=== PATIENT | male | born 1975 | race Caucasian/White ===

== ENCOUNTER 2016-08-14 09:46 | Emergency (ER) | payer OTHER ==
[~2016-08-14] VITALS: Ht 167.6 cm; Wt 131.8 kg
[2016-08-14] MEDS ORDERED: CAPT25TA3 PO (09:57)
[2016-08-14 13:13] VITALS: BP 129/85
== END 2016-08-14 13:12 | disposition home or self-care (01) ==
LOC: EMS 09:49
DX: S83.92XA Sprain of unspecified site of left knee, initial encounter (principal); I10 Essential (primary) hypertension; X58.XXXA Exposure to other specified factors, initial encounter; Y93.89 Activity, other specified; Y92.9 Unspecified place or not applicable; Y99.9 Unspecified external cause status
CPT/HCPCS: 29505; 99284

== ENCOUNTER 2016-12-18 09:38 | Emergency (ER) | payer OTHER ==
[~2016-12-18] VITALS: Ht 177.8 cm; Wt 136.3 kg
[~2016-12-18 09:38] MED LIST: CAPT25TA3 PO
[2016-12-18 11:43] VITALS: BP 140/88
[2016-12-18] MEDS ORDERED: IBUPROFEN 600 MG TABLET PO ONE (11:45)
[2016-12-18] MEDS ORDERED: IBUPROFEN 800 MG TABLET PO ONE (11:45)
== END 2016-12-18 11:48 | disposition home or self-care (01) ==
LOC: EMS 09:43
DX: S86.912A Strain of unspecified muscle(s) and tendon(s) at lower leg level, left leg, initial encounter (principal); I10 Essential (primary) hypertension; X58.XXXA Exposure to other specified factors, initial encounter; Y93.89 Activity, other specified; Y92.89 Other specified places as the place of occurrence of the external cause; Y99.9 Unspecified external cause status
CPT/HCPCS: 99284

== ENCOUNTER 2023-09-15 12:43 | Emergency (ER) | payer OTHER ==
[~2023-09-15] VITALS: Ht 172.7 cm; Wt 186.4 kg
[2023-09-15 13:01] VITALS: TEMP 98.3
[2023-09-15] MEDS: HYDROCODONE/ACETAMINOPHEN 5-325 MG TABLET PO ONE (15:54)
[2023-09-15 16:00] VITALS: BP 149/77; PULSE 72; RESP 16
[2023-09-15] MEDS ORDERED: AMOX250C4 PO (16:25)
[2023-09-15] MEDS: AMOXICILLIN TRIHYDRATE 250 MG CAPSULE PO ONE (16:25)
[2023-09-15] MEDS ORDERED: TRAM50TA5 PO (16:26)
[2023-09-15] MEDS: KETOROLAC TROMETHAMINE 30 MG/ML VIAL IM ONE (16:26)
== END 2023-09-15 16:34 | disposition home or self-care (01) ==
LOC: EMS 12:46
DX: K08.89 Other specified disorders of teeth and supporting structures (principal); I10 Essential (primary) hypertension
CPT/HCPCS: 99283; 96372; J1885